=== PATIENT | female | born 1960 | race Caucasian/White ===

== ENCOUNTER 2020-03-09 16:00 | Observation (INO) | payer OTHER ==
[~2020-03-09] VITALS: Ht 160 cm; Wt 75.4 kg
[~2020-03-09 16:00] MED LIST: ADMELOG SO100 UNIT/1 SC; ALENDRONATE SOD70 MG PO; ASPIRIN EC81 MG PO; BACTRIM 400-801 EACH PO; BACTRIM DS TAB1 EACH PO; BENADRYL 25MG C25 MG PO; BRILINTA PO; BRILINTA90 MG PO; CLARITIN 10MG T10 MG PO; CLARITIN10 MG PO; DIOVAN40 MG PO; EXEMESTANE25 MG PO; FISH OIL 1,0001 EACH PO; GABAPENTIN800 MG PO; INVOKANA100 MG PO; ISOSORBIDE MONO30 MG PO; ISOSORBIDE MONO60 MG PO; JARDIANCE10 MG PO; JARDIANCE25 MG PO; LANTUS100 UNIT/1 SC; LEXAPRO20 MG PO; LIPITOR80 MG PO; LORTAB 7.5-3251 EACH PO; LOSARTAN POTASS50 MG PO; LOVAZA1 GM PO; METOPROLOL TART50 MG PO; MIACALCIN NASA3.7 ML; NAPROSYN500 MG PO; NEURONTIN 400400 MG PO; NITROSTAT0.4 MG SL; PANTOPRAZOLE SO40 MG PO; PHENERGAN 25 MG25 M1 PO; RELAFEN500 MG PO; SINGULAIR10 MG PO; SLO-NIACIN500 MG PO; TRADJENTA5 MG PO; TRESIBA FL100 UNIT/1 SC; TYLENOL 500 MG500 MG PO; VENTOLIN HFA 66.7 GM INH; VITAMIN D21250 MCG PO; VITAMIN D35000 UNI1 PO; ZYRTEC10 MG PO
[2020-04-11] MEDS ORDERED: ELIQUIS5 MG PO (22:14)
[2020-04-11] MEDS ORDERED: PLAVIX75 MG PO (22:15)
[2020-04-11] MEDS ORDERED: NORCO 5-325 TA1 EACH PO (22:16)
[2020-06-01 11:23] LABS: HEMOGLOBIN 11.5 gm/dl (12.3-15.3); RED BLOOD COUNT 4.49 M/UL (4.00-5.10); WHITE BLOOD COUNT 14.6 K/UL (4.5-11.0)
[2020-06-01 11:45] LABS: BUN/CREATININE RATIO 26 (0-10)
[2020-06-02 00:22] LABS: BUN/CREATININE RATIO 18 (0-10)
[2020-06-03] MEDS ORDERED: LOPRESSOR 25 MG25 MG PO (13:52)
== END 2020-06-04 11:58 | disposition home or self-care (01) ==
LOC: ZOBSOF 06-01 10:35 → PROG CARE 06-01 10:35
PROVIDERS: Internal Medicine; Nurse Practitioner Family; Surgery; ADMIT Internal Medicine
PROC: B41DZZZ Fluoroscopy of Aorta and Bilateral Lower Extremity Arteries (ICD-10-PCS; 2020-06-01)
PROC: 04CK3ZZ Extirpation of Matter from Right Femoral Artery, Percutaneous Approach (ICD-10-PCS; principal; 2020-06-01 11:30)
PROC: 047K35Z Dilation of Right Femoral Artery with Two Drug-eluting Intraluminal Devices, Percutaneous Approach (ICD-10-PCS; 2020-06-01 11:30)
DX: E11.51 Type 2 diabetes mellitus with diabetic peripheral angiopathy without gangrene (principal); I70.221 Atherosclerosis of native arteries of extremities with rest pain, right leg; I25.10 Atherosclerotic heart disease of native coronary artery without angina pectoris; I10 Essential (primary) hypertension; I48.0 Paroxysmal atrial fibrillation; E78.5 Hyperlipidemia, unspecified; J30.2 Other seasonal allergic rhinitis; F41.8 Other specified anxiety disorders; M19.90 Unspecified osteoarthritis, unspecified site; E66.9 Obesity, unspecified; Z90.49 Acquired absence of other specified parts of digestive tract; Z90.13 Acquired absence of bilateral breasts and nipples; Z88.1 Allergy status to other antibiotic agents; Z79.01 Long term (current) use of anticoagulants; Z79.4 Long term (current) use of insulin; Z85.3 Personal history of malignant neoplasm of breast; Z95.5 Presence of coronary angioplasty implant and graft; Z79.899 Other long term (current) drug therapy; Z82.49 Family history of ischemic heart disease and other diseases of the circulatory system
CPT/HCPCS: 36415; 75625; 76000; 80048; 80053; 81001; 82550; 82553; 82962; 83735; 84484; 85025; 85610; 85730; 86850; 86900; 86901; 93005; 94760; 96374; 96375; C1714; C1725; C1769; C1887; C2623; G0378; G0379; J0360; J0690; J1170; J1644; J2001; J2250; J2405; J2704; J2710; J2720; J3010; J7040; J7050; J7070; J7120; Q9962

== ENCOUNTER 2020-04-11 17:42 | Observation (INO) | payer OTHER ==
[~2020-04-11] VITALS: Ht 157.5 cm; Wt 72.8 kg
[2020-04-11 18:56] LABS: RED BLOOD COUNT 4.32 M/UL (4.00-5.10); WHITE BLOOD COUNT 12.1 K/UL (4.5-11.0)
[2020-04-11 19:17] LABS: BUN/CREATININE RATIO 21 (0-10)
[2020-04-11] MEDS ORDERED: ELIQUIS5 MG PO (22:14)
[2020-04-11] MEDS ORDERED: PLAVIX75 MG PO (22:15)
[2020-04-11] MEDS ORDERED: NORCO 5-325 TA1 EACH PO (22:16)
== END 2020-04-12 16:27 | disposition home or self-care (01) ==
LOC: ER1 17:42 → MED SURG 4 20:46 → CDU 20:46 → MED SURG 4 22:10
PROVIDERS: Emergency Medicine; ADMIT Internal Medicine
DX: R07.89 Other chest pain (principal); I25.10 Atherosclerotic heart disease of native coronary artery without angina pectoris; Z95.1 Presence of aortocoronary bypass graft; I10 Essential (primary) hypertension; E78.5 Hyperlipidemia, unspecified; M14.671 Charcot's joint, right ankle and foot; E11.51 Type 2 diabetes mellitus with diabetic peripheral angiopathy without gangrene; F32.9 Major depressive disorder, single episode, unspecified; R91.1 Solitary pulmonary nodule; Z90.13 Acquired absence of bilateral breasts and nipples; Z85.3 Personal history of malignant neoplasm of breast; Z88.1 Allergy status to other antibiotic agents; Z79.899 Other long term (current) drug therapy; Z20.828 Contact with and (suspected) exposure to other viral communicable diseases
CPT/HCPCS: ECHO; 36415; 71045; 80053; 82550; 82553; 82962; 83690; 83735; 83874; 84100; 84484; 85025; 85379; 85610; 85730; 93005; 93306; 99285; G0378; Q9967; U0002

== ENCOUNTER → 2020-05-13 | Outpatient (CLI) | payer OTHER ==
[~2020-05-13] MED LIST changes: +ACETAMINOPHEN500 MG PO; +ALENDRONATE SOD10 MG PO; +AMIODARONE HCL200 MG PO; +BANOPHEN25 MG PO; +BENZONATATE200 MG PO; +BYDUREON P2 MG/0.65 SC; +DOXYCYCLINE HY100 MG PO; +ELIQUIS5 MG PO; +HUMALOG 10100 UNITS/ SC; +HUMALOG100 UNIT/1 SQ; +HYDROCODON-ACE1 EAC4 PO; +INVANZ 1 GM VIAL1 GM IV; +KLOR-CON M1010 MEQ PO; +LACTINEX TABLET1 EA PO; +LASIX TAB 20 MG20 MG PO; +LOPRESSOR 25 MG25 MG PO; +LOPRESSOR 50 MG50 MG PO; +LOPRESSOR100 MG PO; +MYCOSTATIN100000 UTS PO; +NABUMETONE500 MG PO; +NITROFURANTOIN100 MG PO; +NORCO 5-325 TA1 EACH PO; +OMEGA 3 1,0001 EACH PO; +OMNICEF 300 MG300 MG PO; +PLAVIX75 MG PO; +QVAR REDIHALE10.6 G1 INH; +SYMBICORT 16010.2 GM INH; +VIRTUSSIN AC 1118 ML PO
== END ==
LOC: KOH-I 10:50
DX: M14.671 Charcot's joint, right ankle and foot (principal); M19.071 Primary osteoarthritis, right ankle and foot; M25.871 Other specified joint disorders, right ankle and foot
CPT/HCPCS: 73630

== ENCOUNTER 2020-06-23 11:58 | Inpatient (IN) | payer OTHER ==
[~2020-06-23] VITALS: Ht 157.5 cm; Wt 71.7 kg
[~2020-06-23 11:58] MED LIST changes: -ACETAMINOPHEN500 MG PO; -ALENDRONATE SOD10 MG PO; -AMIODARONE HCL200 MG PO; -BANOPHEN25 MG PO; -BENZONATATE200 MG PO; -BYDUREON P2 MG/0.65 SC; -DOXYCYCLINE HY100 MG PO; -HUMALOG 10100 UNITS/ SC; -HUMALOG100 UNIT/1 SQ; -HYDROCODON-ACE1 EAC4 PO; -INVANZ 1 GM VIAL1 GM IV; -KLOR-CON M1010 MEQ PO; -LACTINEX TABLET1 EA PO; -LASIX TAB 20 MG20 MG PO; -LOPRESSOR 50 MG50 MG PO; -LOPRESSOR100 MG PO; -MYCOSTATIN100000 UTS PO; -NABUMETONE500 MG PO; -NITROFURANTOIN100 MG PO; -OMEGA 3 1,0001 EACH PO; -OMNICEF 300 MG300 MG PO; -QVAR REDIHALE10.6 G1 INH; -SYMBICORT 16010.2 GM INH; -VIRTUSSIN AC 1118 ML PO
[2020-06-23 12:58] LABS: HEMOGLOBIN 11.1 gm/dl (12.3-15.3); RED BLOOD COUNT 4.58 M/UL (4.00-5.10); WHITE BLOOD COUNT 15.2 K/UL (4.5-11.0)
[2020-06-23 13:17] LABS: BUN/CREATININE RATIO 27 (0-10)
[2020-06-23] MEDS ORDERED: BYDUREON P2 MG/0.65 SC (15:35)
[2020-06-23] MEDS ORDERED: ALENDRONATE SOD10 MG PO (15:37)
[2020-06-23] MEDS ORDERED: VIRTUSSIN AC 1118 ML PO (15:38)
[2020-06-23] MEDS ORDERED: LOPRESSOR100 MG PO (15:39)
[2020-06-23] MEDS ORDERED: NITROFURANTOIN100 MG PO (15:40)
[2020-06-23] MEDS ORDERED: OMEGA 3 1,0001 EACH PO (15:40)
[2020-06-23] MEDS ORDERED: BANOPHEN25 MG PO (15:41)
[2020-06-23] MEDS ORDERED: NABUMETONE500 MG PO (15:43)
[2020-06-23] MEDS ORDERED: MYCOSTATIN100000 UTS PO (15:48)
[2020-06-23] MEDS ORDERED: CLARITIN 10MG T10 MG PO (15:48)
[2020-06-23] MEDS ORDERED: ADMELOG SO100 UNIT/1 SC (15:48)
[2020-06-23] MEDS ORDERED: VITAMIN D21250 MCG PO (15:49)
[2020-06-23] MEDS ORDERED: PLAVIX75 MG PO (15:49)
[2020-06-23] MEDS ORDERED: VENTOLIN HFA 66.7 GM INH (15:49)
[2020-06-23] MEDS ORDERED: LEXAPRO20 MG PO (15:50)
[2020-06-24 05:56] LABS: HEMOGLOBIN 9.5 gm/dl (12.3-15.3); RED BLOOD COUNT 4.05 M/UL (4.00-5.10); WHITE BLOOD COUNT 11.6 K/UL (4.5-11.0)
[2020-06-24 06:17] LABS: BUN/CREATININE RATIO 19 (0-10)
[2020-06-24] MEDS ORDERED: LOPRESSOR 50 MG50 MG PO (12:11)
[2020-06-24] MEDS ORDERED: OMNICEF 300 MG300 MG PO (12:11)
[2020-06-24] MEDS ORDERED: DOXYCYCLINE HY100 MG PO (12:11)
[2020-06-24] MEDS ORDERED: BENZONATATE200 MG PO (12:16)
[2020-06-24] MEDS ORDERED: HUMALOG100 UNIT/1 SQ (12:16)
[2020-06-24] MEDS ORDERED: AMIODARONE HCL200 MG PO (12:18)
[2020-06-24] MEDS ORDERED: HUMALOG 10100 UNITS/ SC (12:30)
== END 2020-06-24 14:45 | disposition home or self-care (01) | DRG 308 ==
LOC: ER1 11:58 → CDU 14:39 → PROG CARE 22:14
PROVIDERS: Emergency Medicine; Physician Assistant Medical; ADMIT Internal Medicine
DX: I48.91 Unspecified atrial fibrillation (principal); J18.9 Pneumonia, unspecified organism; I73.9 Peripheral vascular disease, unspecified; D72.829 Elevated white blood cell count, unspecified; I10 Essential (primary) hypertension; E78.5 Hyperlipidemia, unspecified; E11.65 Type 2 diabetes mellitus with hyperglycemia; L97.519 Non-pressure chronic ulcer of other part of right foot with unspecified severity; M19.90 Unspecified osteoarthritis, unspecified site; E11.621 Type 2 diabetes mellitus with foot ulcer; I25.10 Atherosclerotic heart disease of native coronary artery without angina pectoris; Z20.822 Contact with and (suspected) exposure to COVID-19; Z95.1 Presence of aortocoronary bypass graft; Z98.61 Coronary angioplasty status; Z85.3 Personal history of malignant neoplasm of breast; Z79.899 Other long term (current) drug therapy; Z79.01 Long term (current) use of anticoagulants; Z79.4 Long term (current) use of insulin; Z98.62 Peripheral vascular angioplasty status; Z90.49 Acquired absence of other specified parts of digestive tract; Z90.710 Acquired absence of both cervix and uterus; Z88.1 Allergy status to other antibiotic agents; Z90.10 Acquired absence of unspecified breast and nipple
CPT/HCPCS: 36415; 71045; 80048; 80053; 82550; 82553; 82962; 83036; 83735; 83874; 84439; 84443; 84484; 85025; 85027; 85610; 85730; 87040; 87086; 93005; 96365; 96372; 96375; 96376; 99285; J0456; J0696; J7030; U0002

== ENCOUNTER → 2020-07-08 | Outpatient (CLI) | payer OTHER ==
[~2020-07-08] MED LIST changes: +ACETAMINOPHEN500 MG PO; +ALENDRONATE SOD10 MG PO; +AMIODARONE HCL200 MG PO; +BANOPHEN25 MG PO; +BENZONATATE200 MG PO; +BYDUREON P2 MG/0.65 SC; +DOXYCYCLINE HY100 MG PO; +HUMALOG 10100 UNITS/ SC; +HUMALOG100 UNIT/1 SQ; +HYDROCODON-ACE1 EAC4 PO; +INVANZ 1 GM VIAL1 GM IV; +KLOR-CON M1010 MEQ PO; +LACTINEX TABLET1 EA PO; +LASIX TAB 20 MG20 MG PO; +LOPRESSOR 50 MG50 MG PO; +LOPRESSOR100 MG PO; +MYCOSTATIN100000 UTS PO; +NABUMETONE500 MG PO; +NITROFURANTOIN100 MG PO; +OMEGA 3 1,0001 EACH PO; +OMNICEF 300 MG300 MG PO; +QVAR REDIHALE10.6 G1 INH; +SYMBICORT 16010.2 GM INH; +VIRTUSSIN AC 1118 ML PO
== END ==
LOC: HEART 5 12:47
DX: R05 Cough (principal); R06.02 Shortness of breath; R21 Rash and other nonspecific skin eruption; Z79.899 Other long term (current) drug therapy; R94.2 Abnormal results of pulmonary function studies
CPT/HCPCS: 71046; 94060; 94729; 95012

== ENCOUNTER 2020-07-13 12:44 | Inpatient (IN) | payer OTHER ==
[~2020-07-13] VITALS: Ht 157.5 cm; Wt 72.6 kg
[~2020-07-13 12:44] MED LIST changes: -ACETAMINOPHEN500 MG PO; -HYDROCODON-ACE1 EAC4 PO; -INVANZ 1 GM VIAL1 GM IV; -KLOR-CON M1010 MEQ PO; -LACTINEX TABLET1 EA PO; -LASIX TAB 20 MG20 MG PO; -QVAR REDIHALE10.6 G1 INH; -SYMBICORT 16010.2 GM INH
--- NOTE | 2020-07-13 17:02 | NUR ---
UNABLE TO TAKE PICTIRE OF THE WOUND R/T CAMERA IS NOT WORKING
[2020-07-13 17:22] LABS: HEMOGLOBIN 10.4 gm/dl (12.3-15.3); RED BLOOD COUNT 4.6 M/UL (4.00-5.10); WHITE BLOOD COUNT 9.8 K/UL (4.5-11.0)
[2020-07-13 17:46] LABS: BUN/CREATININE RATIO 16 (0-10)
[2020-07-13] MEDS ORDERED: ACETAMINOPHEN500 MG PO (17:53)
[2020-07-13] MEDS ORDERED: LASIX TAB 20 MG20 MG PO (18:01)
[2020-07-13] MEDS ORDERED: SYMBICORT 16010.2 GM INH (18:01)
[2020-07-13] MEDS ORDERED: QVAR REDIHALE10.6 G1 INH (18:02)
[2020-07-14 04:50] LABS: HEMOGLOBIN 9.6 gm/dl (12.3-15.3); RED BLOOD COUNT 4.27 M/UL (4.00-5.10); WHITE BLOOD COUNT 8.5 K/UL (4.5-11.0)
[2020-07-14 05:04] LABS: BUN/CREATININE RATIO 16 (0-10)
[2020-07-14] MEDS ORDERED: AMIODARONE HCL200 MG PO (12:19)
[2020-07-16 04:25] LABS: HEMOGLOBIN 10.2 gm/dl (12.3-15.3); RED BLOOD COUNT 4.46 M/UL (4.00-5.10); WHITE BLOOD COUNT 8.5 K/UL (4.5-11.0)
--- NOTE | 2020-07-16 18:41 | NUR ---
1430- PATIENT TRASPORTED TO OR AT THIS TIME.
[2020-07-17 05:47] LABS: RED BLOOD COUNT 4.38 M/UL (4.00-5.10)
[2020-07-17 05:48] LABS: WHITE BLOOD COUNT 13.7 K/UL (4.5-11.0)
[2020-07-18 03:09] LABS: HEMOGLOBIN 9.3 gm/dl (12.3-15.3); RED BLOOD COUNT 4.07 M/UL (4.00-5.10); WHITE BLOOD COUNT 11.9 K/UL (4.5-11.0)
[2020-07-19 04:44] LABS: HEMOGLOBIN 9.3 gm/dl (12.3-15.3); RED BLOOD COUNT 4.08 M/UL (4.00-5.10); WHITE BLOOD COUNT 10.2 K/UL (4.5-11.0)
[2020-07-19 05:03] LABS: BUN/CREATININE RATIO 13 (0-10)
[2020-07-20 03:15] LABS: HEMOGLOBIN 9.1 gm/dl (12.3-15.3); RED BLOOD COUNT 4.04 M/UL (4.00-5.10)
[2020-07-20 03:41] LABS: BUN/CREATININE RATIO 12 (0-10)
[2020-07-20] MEDS ORDERED: HYDROCODON-ACE1 EAC4 PO (11:24)
[2020-07-20] MEDS ORDERED: INVANZ 1 GM VIAL1 GM IV (11:28)
[2020-07-20] MEDS ORDERED: PHENERGAN 25 MG25 M1 PO (11:39)
[2020-07-20] MEDS ORDERED: LACTINEX TABLET1 EA PO (11:39)
--- NOTE | 2020-07-20 13:53 | NUR ---
PICC NURSE UNABLE TO INSERT PICC LINE AT THIS TIME DUE TO HAVING TO TAKE A PATIENT LOAD. PROVIDER WAS CONTACTED AND MADE AWARE. RAILROAD YARD WORKER CONTACTED ABOUT AN ALTERNATIVE AT THIS TIME. SHE STATES THAT SHE WILL CALL ME BACK AND LET ME KNOW IF ANOTHER NURSE IN THE HOSPITAL CAN DO IT.
[2020-07-20] MEDS ORDERED: KLOR-CON M1010 MEQ PO (16:19)
== END 2020-07-20 16:36 | disposition home health service (06) | DRG 264 ==
LOC: M/S 12:44
PROVIDERS: Physician Assistant; Physician Assistant Medical; Podiatrist Foot & Ankle Surgery; ADMIT Internal Medicine
PROC: 0QBN0ZZ Excision of Right Metatarsal, Open Approach (ICD-10-PCS; 2020-07-16)
PROC: 0SGH04Z Fusion of Right Tarsal Joint with Internal Fixation Device, Open Approach (ICD-10-PCS; 2020-07-16)
PROC: 0SGM04Z Fusion of Right Metatarsal-Phalangeal Joint with Internal Fixation Device, Open Approach (ICD-10-PCS; 2020-07-16)
PROC: 0L8N0ZZ Division of Right Lower Leg Tendon, Open Approach (ICD-10-PCS; 2020-07-16)
PROC: 0L8V0ZZ Division of Right Foot Tendon, Open Approach (ICD-10-PCS; 2020-07-16)
PROC: 0JBQ0ZZ Excision of Right Foot Subcutaneous Tissue and Fascia, Open Approach (ICD-10-PCS; principal; 2020-07-16 15:00)
DX: E11.52 Type 2 diabetes mellitus with diabetic peripheral angiopathy with gangrene (principal); I96 Gangrene, not elsewhere classified; M86.8X7 Other osteomyelitis, ankle and foot; E11.610 Type 2 diabetes mellitus with diabetic neuropathic arthropathy; E11.628 Type 2 diabetes mellitus with other skin complications; E11.69 Type 2 diabetes mellitus with other specified complication; E11.621 Type 2 diabetes mellitus with foot ulcer; M21.6X1 Other acquired deformities of right foot; Z20.822 Contact with and (suspected) exposure to COVID-19; E78.5 Hyperlipidemia, unspecified; E87.6 Hypokalemia; I48.0 Paroxysmal atrial fibrillation; I10 Essential (primary) hypertension; I25.10 Atherosclerotic heart disease of native coronary artery without angina pectoris; Z79.4 Long term (current) use of insulin; Z95.1 Presence of aortocoronary bypass graft; Z85.3 Personal history of malignant neoplasm of breast; Z90.49 Acquired absence of other specified parts of digestive tract; Z90.13 Acquired absence of bilateral breasts and nipples; Z90.710 Acquired absence of both cervix and uterus; Z88.1 Allergy status to other antibiotic agents; Z82.49 Family history of ischemic heart disease and other diseases of the circulatory system
CPT/HCPCS: 36415; 73630; 73718; 76000; 80048; 80053; 82962; 84132; 85025; 85027; 85610; 85652; 86140; 87070; 87077; 87186; 87205; 93005; 94640; 94664; 94760; C1713; J0690; J0696; J1100; J1335; J2001; J2020; J2250; J2270; J2405; J2543; J2704; J2710; J2795; J3010; J7030; J7120; Q4133; U0002

== ENCOUNTER → 2020-07-27 | Outpatient (CLI) | payer OTHER ==
[~2020-07-27] MED LIST changes: +ACETAMINOPHEN500 MG PO; +HYDROCODON-ACE1 EAC4 PO; +INVANZ 1 GM VIAL1 GM IV; +KLOR-CON M1010 MEQ PO; +LACTINEX TABLET1 EA PO; +LASIX TAB 20 MG20 MG PO; +QVAR REDIHALE10.6 G1 INH; +SYMBICORT 16010.2 GM INH
== END ==
LOC: KOH-I 09:51
DX: Z47.89 Encounter for other orthopedic aftercare (principal)
CPT/HCPCS: 73630

== ENCOUNTER → 2020-08-12 | Outpatient (CLI) | payer OTHER | LOC: KOH-I 11:19 | DX: M14.671 Charcot's joint, right ankle and foot (principal); Z47.89 Encounter for other orthopedic aftercare | CPT/HCPCS: 73630 ==

== ENCOUNTER → 2020-08-31 | Outpatient (CLI) | payer OTHER | LOC: KOH-I 09:12 | DX: M79.671 Pain in right foot (principal) | CPT/HCPCS: 73630 ==

== ENCOUNTER → 2020-09-14 | Outpatient (CLI) | payer OTHER | LOC: KOH-I 15:29 | DX: I82.491 Acute embolism and thrombosis of other specified deep vein of right lower extremity (principal); I47.1 Supraventricular tachycardia | CPT/HCPCS: 93971 ==

== ENCOUNTER → 2020-09-28 | Outpatient (CLI) | payer OTHER | LOC: KOH-I 10:41 | DX: M79.671 Pain in right foot (principal); M14.671 Charcot's joint, right ankle and foot | CPT/HCPCS: 73630 ==

== ENCOUNTER → 2021-03-17 | Outpatient (CLI) | payer OTHER | LOC: KOH-I 10:27 | DX: M79.671 Pain in right foot (principal) | CPT/HCPCS: 73630 ==

== ENCOUNTER → 2021-03-29 | Outpatient (CLI) | payer OTHER | LOC: KOH-I 08:24 | DX: T85.698A Other mechanical complication of other specified internal prosthetic devices, implants and grafts, initial encounter (principal) | CPT/HCPCS: 73700 ==

== ENCOUNTER → 2021-04-06 | Outpatient (CLI) | payer OTHER | LOC: ECHO 03-24 09:15 → HEART 5 09:25 | DX: I25.10 Atherosclerotic heart disease of native coronary artery without angina pectoris (principal); I24.1 Dressler's syndrome; I08.1 Rheumatic disorders of both mitral and tricuspid valves; I27.20 Pulmonary hypertension, unspecified | CPT/HCPCS: 93306 ==

== ENCOUNTER → 2021-04-21 | Outpatient (CLI) | payer OTHER | LOC: KOH-I 13:37 | DX: M25.571 Pain in right ankle and joints of right foot (principal) | CPT/HCPCS: 73610; 73630 ==

== ENCOUNTER → 2021-05-05 | Outpatient (CLI) | payer OTHER | LOC: KOH-I 10:57 | DX: M25.571 Pain in right ankle and joints of right foot (principal); M79.671 Pain in right foot; R93.6 Abnormal findings on diagnostic imaging of limbs; Z96.7 Presence of other bone and tendon implants | CPT/HCPCS: 73610; 73630 ==

== ENCOUNTER → 2021-05-23 | Outpatient (CLI) | payer OTHER ==
[2021-05-23 17:20] LABS: HEMOGLOBIN 9.2 gm/dl (12.3-15.3); WHITE BLOOD COUNT 13.9 K/UL (4.5-11.0)
== END ==
LOC: LAB 16:28
PROVIDERS: Podiatrist Foot & Ankle Surgery
DX: Z53.9 Procedure and treatment not carried out, unspecified reason (principal)
CPT/HCPCS: 36415; 85027; 85652; 86140

== ENCOUNTER → 2021-05-27 | Outpatient (CLI) | payer OTHER | LOC: KOH-I 09:18 | DX: M14.671 Charcot's joint, right ankle and foot (principal); M79.661 Pain in right lower leg; I82.401 Acute embolism and thrombosis of unspecified deep veins of right lower extremity; S92.141A Displaced dome fracture of right talus, initial encounter for closed fracture | CPT/HCPCS: 73700; 93971 ==

== ENCOUNTER → 2021-06-09 | Outpatient (CLI) | payer OTHER | LOC: NM 06:46 | DX: Z53.9 Procedure and treatment not carried out, unspecified reason (principal) | CPT/HCPCS: 78800; A9569 ==

== ENCOUNTER → 2021-07-07 | Outpatient (CLI) | payer OTHER ==
[~2021-07-07] MED LIST changes: +ALBUTEROL2.5 MG/3 M INH; +FERREX 150150 MG PO; +HUMALOG100 UNIT/3 SQ; +HYDROCODONE-AC1 EACH PO; +LASIX20 MG PO; +LIDOCAINE-PRILOC5 GM TOP; +NEURONTIN600 MG PO; +NORVASC5 MG PO; +PROAIR HFA8.5 GM INH; +TRESIBA FLEXTOUCH SQ
[2021-07-07 13:55] LABS: HEMOGLOBIN 9.7 gm/dl (12.3-15.3); RED BLOOD COUNT 4.85 M/UL (4.00-5.10); WHITE BLOOD COUNT 13.1 K/UL (4.5-11.0)
== END ==
LOC: OPSV2 12:30
PROVIDERS: Podiatrist Foot & Ankle Surgery
DX: Z01.812 Encounter for preprocedural laboratory examination (principal); T84.84XA Pain due to internal orthopedic prosthetic devices, implants and grafts, initial encounter
CPT/HCPCS: 36415; 80048; 85027

== ENCOUNTER 2021-07-14 18:35 | Inpatient (IN) | payer OTHER ==
[~2021-07-14] VITALS: Ht 157.5 cm; Wt 65.8 kg
[~2021-07-14 18:35] MED LIST changes: -ALBUTEROL2.5 MG/3 M INH; -FERREX 150150 MG PO; -HUMALOG100 UNIT/3 SQ; -NEURONTIN600 MG PO; -NORVASC5 MG PO; -PROAIR HFA8.5 GM INH; -TRESIBA FLEXTOUCH SQ
[2021-07-14 19:00] LABS: HEMOGLOBIN 7.1 gm/dl (12.3-15.3); RED BLOOD COUNT 3.49 M/UL (4.00-5.10); WHITE BLOOD COUNT 23.1 K/UL (4.5-11.0)
[2021-07-14 22:20] LABS: HEMOGLOBIN 7.3 gm/dl (12.3-15.3)
[2021-07-15 04:55] LABS: RED BLOOD COUNT 3.38 M/UL (4.00-5.10)
[2021-07-15 05:04] LABS: HEMOGLOBIN 6.9 gm/dl (12.3-15.3); WHITE BLOOD COUNT 15.6 K/UL (4.5-11.0)
[2021-07-15] MEDS ORDERED: VITAMIN C 500500 MG PO (08:39)
[2021-07-15] MEDS ORDERED: ASPIRIN EC325 MG PO (08:40)
[2021-07-15] MEDS ORDERED: CIPRO500 MG PO (08:41)
[2021-07-15] MEDS ORDERED: CLINDAMYCIN HC300 MG PO (08:42)
[2021-07-15] MEDS ORDERED: HYDROCODON-ACE1 EAC6 PO (08:55)
[2021-07-15] MEDS ORDERED: JARDIANCE10 MG PO (16:06)
[2021-07-15] MEDS ORDERED: TRESIBA FL100 UNIT/1 SQ (16:09)
[2021-07-15] MEDS ORDERED: HUMALOG100 UNIT/3 SQ (16:10)
[2021-07-15] MEDS ORDERED: PROAIR HFA8.5 GM INH (16:15)
[2021-07-15] MEDS ORDERED: NORVASC5 MG PO (16:16)
[2021-07-15] MEDS ORDERED: AMIODARONE HCL200 MG PO (16:16)
[2021-07-15] MEDS ORDERED: NEURONTIN600 MG PO (16:17)
[2021-07-15] MEDS ORDERED: ALBUTEROL2.5 MG/3 M INH (16:18)
[2021-07-15] MEDS ORDERED: FERREX 150150 MG PO (16:19)
--- NOTE | 2021-07-15 20:53 | NUR ---
07/15/21 AT 4 AM HGB WAS 6.9. NIGHTSHIFT ICU NURSE CALLED DR. MARTINEZ. NO ORDER TO TRANSFUSE WAS GIVEN. PATIENT WAS TRANSFERRED TO MED SURG 5 DURING HI. 1899 RECIEVED BEDSIDE REPORT OF PT'S HGB 6.9. I CALLED TO REPORT THE HGB OF 6.[address] BRAVO. ORDER TO CHECK H&H STAT, IF BELOW 7.0 TRANSFUSE 1 UNIT. LAB REPORT CAME BACK HGB AT 7.0 EXACTLY. I WILL RECHECK WITH AM LABS EARLY AND IF BELOW 7.0 I WILL TRANSFUSE THEN.
[2021-07-16 04:31] LABS: RED BLOOD COUNT 3.38 M/UL (4.00-5.10); WHITE BLOOD COUNT 13.2 K/UL (4.5-11.0)
[2021-07-16 04:33] LABS: HEMOGLOBIN 6.8 gm/dl (12.3-15.3)
[2021-07-17 05:39] LABS: HEMOGLOBIN 8.1 gm/dl (12.3-15.3); RED BLOOD COUNT 3.75 M/UL (4.00-5.10); WHITE BLOOD COUNT 11.6 K/UL (4.5-11.0)
[2021-07-17 06:04] LABS: BUN/CREATININE RATIO 19 (0-10)
[2021-07-17] MEDS ORDERED: CEFUROXIME500 MG PO ×4 (08:44→08:57)
--- NOTE | 2021-07-17 10:46 | NUR ---
patient and family independent of wound care and has been changing wound care per . patient have appt for dr. leon in the morning and instructed and patient to show wound and ask if there is any changes of wound care order. patient and verb understanding
== END 2021-07-17 11:12 | disposition home or self-care (01) | DRG 177 ==
LOC: ER1 18:35 → CDU 21:32 → M/S 07-15 01:15 → CCU 07-15 07:58 → M/S 07-15 17:47
PROVIDERS: Internal Medicine; Physician Assistant; ADMIT Internal Medicine
PROC: 30233N1 Transfusion of Nonautologous Red Blood Cells into Peripheral Vein, Percutaneous Approach (ICD-10-PCS; principal; 2021-07-16)
DX: J69.0 Pneumonitis due to inhalation of food and vomit (principal); G92.8 Other toxic encephalopathy; N39.0 Urinary tract infection, site not specified; D62 Acute posthemorrhagic anemia; F11.20 Opioid dependence, uncomplicated; N17.9 Acute kidney failure, unspecified; Z20.822 Contact with and (suspected) exposure to COVID-19; H57.04 Mydriasis; D63.8 Anemia in other chronic diseases classified elsewhere; E86.0 Dehydration; I12.9 Hypertensive chronic kidney disease with stage 1 through stage 4 chronic kidney disease, or unspecified chronic kidney disease; D63.1 Anemia in chronic kidney disease; T44.3X5A Adverse effect of other parasympatholytics [anticholinergics and antimuscarinics] and spasmolytics, initial encounter; I25.10 Atherosclerotic heart disease of native coronary artery without angina pectoris; E78.5 Hyperlipidemia, unspecified; E11.51 Type 2 diabetes mellitus with diabetic peripheral angiopathy without gangrene; E11.22 Type 2 diabetes mellitus with diabetic chronic kidney disease; J44.9 Chronic obstructive pulmonary disease, unspecified; J30.9 Allergic rhinitis, unspecified; F41.9 Anxiety disorder, unspecified; M19.072 Primary osteoarthritis, left ankle and foot; E11.40 Type 2 diabetes mellitus with diabetic neuropathy, unspecified; M19.071 Primary osteoarthritis, right ankle and foot; I48.0 Paroxysmal atrial fibrillation; Z79.01 Long term (current) use of anticoagulants; Z86.73 Personal history of transient ischemic attack (TIA), and cerebral infarction without residual deficits; Z85.3 Personal history of malignant neoplasm of breast; Z79.4 Long term (current) use of insulin; Z90.13 Acquired absence of bilateral breasts and nipples; Z98.890 Other specified postprocedural states; Z95.1 Presence of aortocoronary bypass graft; Z90.3 Acquired absence of stomach [part of]; Z90.710 Acquired absence of both cervix and uterus; Z83.3 Family history of diabetes mellitus
CPT/HCPCS: 0240U; 36415; 36600; 70450; 71045; 80048; 80053; 80307; 81001; 82140; 82550; 82553; 82607; 82746; 82803; 82962; 83540; 83550; 83605; 83735; 83930; 84100; 84439; 84443; 84484; 85014; 85018; 85025; 85045; 85610; 85652; 86140; 86850; 86900; 86901; 86920; 87040; 87086; 93005; 96374; 96375; 99285; C9113; G0378; J0696; J1650; J2310; J2543; J7030; J7050; P9016

== ENCOUNTER → 2021-08-01 | Outpatient (CLI) | payer OTHER ==
[~2021-08-01] MED LIST changes: +ALBUTEROL2.5 MG/3 M INH; +ASPIRIN EC325 MG PO; +CEFUROXIME500 MG PO; +CIPRO500 MG PO; +CLINDAMYCIN HC300 MG PO; +FERREX 150150 MG PO; +HUMALOG100 UNIT/3 SQ; +HYDROCODON-ACE1 EAC6 PO; +NEURONTIN600 MG PO; +NORVASC5 MG PO; +PROAIR HFA8.5 GM INH; +TRESIBA FL100 UNIT/1 SQ; +VITAMIN C 500500 MG PO
== END ==
LOC: KOH-I 10:39
DX: M79.671 Pain in right foot (principal); Z96.7 Presence of other bone and tendon implants
CPT/HCPCS: 73630

== ENCOUNTER → 2021-08-16 | Outpatient (CLI) | payer OTHER | LOC: KOH-I 11:30 | DX: S91.309A Unspecified open wound, unspecified foot, initial encounter (principal); I96 Gangrene, not elsewhere classified | CPT/HCPCS: 93925 ==

== ENCOUNTER → 2021-09-01 | Outpatient (CLI) | payer OTHER | LOC: EMI 15:20 | DX: M86.8X7 Other osteomyelitis, ankle and foot (principal); M86.9 Osteomyelitis, unspecified; L02.612 Cutaneous abscess of left foot; I96 Gangrene, not elsewhere classified; L03.116 Cellulitis of left lower limb | CPT/HCPCS: 73718 ==

== ENCOUNTER → 2021-09-08 | Outpatient (CLI) | payer OTHER | LOC: KOH-I 10:21 | DX: M25.571 Pain in right ankle and joints of right foot (principal); M14.671 Charcot's joint, right ankle and foot; S92.121D Displaced fracture of body of right talus, subsequent encounter for fracture with routine healing | CPT/HCPCS: 73610; 73630 ==

== ENCOUNTER → 2021-10-11 | Outpatient (CLI) | payer OTHER | LOC: KOH-I 11:07 | DX: M25.572 Pain in left ankle and joints of left foot (principal); M25.571 Pain in right ankle and joints of right foot; M19.072 Primary osteoarthritis, left ankle and foot; M19.071 Primary osteoarthritis, right ankle and foot | CPT/HCPCS: 73610; 73630; 73650 ==

== ENCOUNTER → 2021-10-25 | Outpatient (CLI) | payer OTHER | LOC: KOH-I 11:00 | DX: T84.69XA Infection and inflammatory reaction due to internal fixation device of other site, initial encounter (principal); S92.141A Displaced dome fracture of right talus, initial encounter for closed fracture | CPT/HCPCS: 73700 ==

== ENCOUNTER → 2021-11-17 | Outpatient (CLI) | payer OTHER | LOC: KOH-I 10:27 | DX: S82.891A Other fracture of right lower leg, initial encounter for closed fracture (principal); S92.901A Unspecified fracture of right foot, initial encounter for closed fracture; X58.XXXA Exposure to other specified factors, initial encounter; Z96.7 Presence of other bone and tendon implants; A52.16 Charcot's arthropathy (tabetic) | CPT/HCPCS: 73610; 73630 ==

== ENCOUNTER → 2021-12-08 | Outpatient (CLI) | payer OTHER | LOC: KOH-I 11:44 | DX: M79.671 Pain in right foot (principal) | CPT/HCPCS: 73630 ==

== ENCOUNTER → 2022-01-03 | Outpatient (CLI) | payer OTHER | LOC: KOH-I 10:13 | DX: M79.671 Pain in right foot (principal); A52.16 Charcot's arthropathy (tabetic) | CPT/HCPCS: 73630 ==